=== PATIENT | female | born 1990 | race Caucasian/White ===

== ENCOUNTER 2020-07-19 00:20 | Emergency (ER) | payer BC ==
--- NOTE | 2020-07-19 01:09 | EDM.PDOC ---
ED HPI GENERAL MEDICAL PROBLEM - General Chief Complaint: General Stated Complaint: MS FLARE UP Time Seen by Provider: 07/19/20 00:45 Source of Information: Reports: Patient, RN. Denies: EMS, Old Records History Limitations: Reports: Other (no old records, patient not a good historian. ) - History of Present Illness INITIAL COMMENTS - FREE TEXT/NARRATIVE: 29 yo female from [place], [place] presents stating that she has been having a flare of her MS for the past 5 days and wants a dose of IV steroids and an MRI for this. Her neurologist at [facility] left abruptly the end of May and Connie has an appt in 3.5 weeks with a new one ? in [place]. She called and talked with her primary care provider in [place] today who told her to go to an ER for IV steroids. Connie went to [place] and was reportedly seen and told that this was anxiety and not her MS. Connie got upset by that assessment and came here several hours later. She wants to see a neurologist here tonight and get an MRI tonight plus "IV steroids". When I told her there were no neurologists here, I would have to call one in [place] and it was not possible to get an MRI tonight she walked out stating that they were going to [place] where they had neurologists. Generalized Pain Score (Numeric/FACES): 6 - Related Data Allergies Allergy/AdvReac Type Severity Reaction Status Date / Time azithromycin Allergy Hives Verified 07/19/20 00:44 Home Meds: Home Meds Cholecalciferol (Vitamin D3) [Vitamin D] 2,000 unit PO DAILY 07/19/20 [History] Past Medical History HEENT History: Reports: Impaired Vision VIDEOGRAPHER History: Reports: Musculoskeletal History: Reports: Other (See Below) Other Musculoskeletal History: MS Psychiatric History: Reports: Anxiety - Past Surgical History Female Surgical History: Reports: Section Social & Family History - Tobacco Use Smoking Status *Q: Never Smoker - Caffeine Use Caffeine Use: Reports: Coffee, Soda, Tea - Recreational Drug Use Recreational Drug Use: No ED ROS GENERAL - Review of Systems Review Of Systems: See Below Constitutional: Reports: No Symptoms HEENT: Reports: No Symptoms Respiratory: Reports: No Symptoms Cardiovascular: Reports: No Symptoms, Palpitations Endocrine: Reports: No Symptoms GI/Abdominal: Reports: No Symptoms Skin: Reports: No Symptoms Neurological: Reports: Seizure (brief a few days ago, EMS responded, but did not transport.) Psychiatric: Reports: Anxiety ED EXAM, GENERAL - Physical Exam Exam: See Below Exam Limited By: No Limitations General Appearance: Alert, WD/WN, No Apparent Distress, Obese Eye Exam: Bilateral Eye: Normal Inspection, PERRL Ears: Normal External Exam, Normal Canal, Hearing Grossly Normal Ear Exam: Bilateral Ear: Auricle Normal, Canal Normal Nose: Normal Inspection, No Blood Throat/Mouth: Normal Inspection, Normal Lips, Normal Oropharynx, Normal Voice, No Airway Compromise Head: Atraumatic, Normocephalic Neck: Normal Inspection Extremities: Normal Inspection Neurological: Alert, Oriented, CN II-XII Intact, Normal Cognition, No Motor/Sensory Deficits Psychiatric: Normal Affect, Normal Mood Skin Exam: Warm, Dry, Intact, Normal Color, No Rash Course - Vital Signs Last Recorded V/S: Last Vital Signs Temp 36.2 C 07/19/20 00:39 Pulse 65 07/19/20 00:39 Resp 16 07/19/20 00:39 BP 122/79 07/19/20 00:39 Pulse Ox 99 07/19/20 00:39 Departure - Departure Time of Disposition: 01:00 Disposition: Eloped 07 Condition: Good Clinical Impression: Seizure-like activity - Discharge Information *PRESCRIPTION DRUG MONITORING PROGRAM REVIEWED*: Not Applicable *COPY OF PRESCRIPTION DRUG MONITORING REPORT IN PATIENT MOODY: Not Applicable Referrals: PCP,None [Primary Care Provider] - Additional Instructions: Left before discharge instructions could be given. Sepsis Event Note (ED) - Evaluation Sepsis Screening Result: No Definite Risk - Focused Exam Vital Signs: Vital Signs Temp Pulse Resp BP Pulse Ox 07/19/20 00:39 36.2 C 65 16 122/79 99
== END 2020-07-19 01:00 | disposition left against medical advice (07) ==
LOC: JP.ED 00:20
DX: R56.9 Unspecified convulsions (principal); E66.9 Obesity, unspecified; R00.2 Palpitations; Z68.32 Body mass index [BMI] 32.0-32.9, adult; Z88.1 Allergy status to other antibiotic agents
CPT/HCPCS: 99283